=== PATIENT | female | born 1985 | race Caucasian/White ===

== ENCOUNTER 2016-11-19 13:46 | Emergency (ER) | payer MEDICAID ==
[~2016-11-19 13:46] MED LIST: ADVAIR INH; ALBUTEROL17 GM INH; ATIVAN1 MG PO; CLEOCIN HCL300 M1 PO; COZAAR100 M1 PO; COZAAR50 M1 PO; DELTASONE10 MG PO; DIABETA PO; DIAMOX SEQUELS500 M1 PO; DIAMOX SEQUELS500 MG PO; FLEXERIL10 MG PO; FLOVENT HFA12 GM IH; FOLIC ACID1 M1 PO; GLUCOPHAGE500 M3 PO; HYDROCODONE-IB1 EAC3 PO; KETOROLAC TROME10 MG PO; KLONOPIN1 MG; LOPRESSOR50 M1 PO; LOSARTAN POTASS50 M1 PO; METOPROLOL TART25 MG PO; NEURONTIN400 M1 PO; NORCO 10-325 T1 EACH PO; NORCO 10/325 TA1 TAB PO; NORCO 10/3251 TAB PO; NORCO 5-325 TA1 EACH PO; NORCO 5/325 TAB1 TAB PO; NORVASC10 MG PO; OXYCODONE HCL5 M1 PO; PEN-VEE K500 MG PO; PENICILLIN V P500 M1 PO; PERCOCET 5-3251 EACH PO; PERCOCET PO; SEROQUEL100 M2 PO; SKELAXIN800 MG PO; XANAX1 MG PO; XANAX2 M1 PO
[2016-11-19] MEDS ORDERED: ROXICODONE5 M2 PO (14:51)
== END 2016-11-19 14:57 ==
LOC: EDMED 13:46
DX: S46.911A Strain of unspecified muscle, fascia and tendon at shoulder and upper arm level, right arm, initial encounter (principal); E11.9 Type 2 diabetes mellitus without complications; I10 Essential (primary) hypertension; F17.200 Nicotine dependence, unspecified, uncomplicated; Z79.899 Other long term (current) drug therapy; X50.1XXA Overexertion from prolonged static or awkward postures, initial encounter; Z88.1 Allergy status to other antibiotic agents; Y93.89 Activity, other specified; Y92.019 Unspecified place in single-family (private) house as the place of occurrence of the external cause; Y99.8 Other external cause status

== ENCOUNTER 2016-11-21 11:05 | Emergency (ER) | payer MEDICAID ==
[~2016-11-21 11:05] MED LIST changes: +ROXICODONE5 M2 PO
[2016-11-21] MEDS ORDERED: ROXICODONE5 M2 PO (11:25)
[2016-11-21] MEDS ORDERED: OXYCODONE HCL5 M1 PO (12:36)
== END 2016-11-21 12:53 ==
LOC: EDMED 11:05
DX: S44.8X1A Injury of other nerves at shoulder and upper arm level, right arm, initial encounter (principal); E11.9 Type 2 diabetes mellitus without complications; I10 Essential (primary) hypertension; F17.200 Nicotine dependence, unspecified, uncomplicated; Z79.899 Other long term (current) drug therapy; X58.XXXA Exposure to other specified factors, initial encounter